=== PATIENT | male | born 1950 | race Caucasian/White ===

== ENCOUNTER 2016-06-01 10:47 | Emergency (ER) | payer MEDICARE ==
[2016-06-01 12:25] VITALS: BP 146/85
--- NOTE | 2016-06-01 13:14 | UC ---
Respiratory Complaint HPI - HPI Summary HPI Summary: Patient has had a harsh cough especially at night. it is not productive, denies any SOB. has had a "head cold" for a couple days. he states he had one episode of diarrhea and lots of gas two days ago, but it is all gone, denies any abdominal pain or fever. - History of Current Complaint Chief Complaint: UCRespiratory Stated Complaint: RESPIRATORY COMPLAINT Time Seen by Provider: 06/01/16 12:58 Hx Obtained From: Patient Onset/Duration: Sudden Onset, Lasting Days Timing: Constant Severity Initially: Mild Severity Currently: Moderate Pain Intensity: 4 Pain Scale Used: 0-10 Numeric Character: Cough: Nonproductive Aggravating Factors: Deep Breaths, Recumbent Position Alleviating Factors: Nothing Associated Signs And Symptoms: Positive: Wheezing, Nasal Congestion, Sinus Discomfort - Risk Factors Pulmonary Embolism Risk Factors: Negative Cardiac Risk Factors: Negative Pseudomonas Risk Factors: Negative Tuberculosis Risk Factors: Negative - Allergies/Home Medications Allergies/Adverse Reactions: Allergies Allergy/AdvReac Type Severity Reaction Status Date / Time No Known Allergies Allergy Verified 06/01/16 12:25 Home Medications: Home Medications guaiFENesin ER TAB [Mucinex*] 600 mg PO DAILY PRN 06/01/16 [History Confirmed ] PMH/Surg Hx/FS Hx/Imm Hx Previously Healthy: Yes - Surgical History Surgical History: Yes Surgery Procedure, Year, and Place: hydrocele at age 13 yrs - Family History Known Family History: Positive: Cardiac Disease, Hypertension - Social History Alcohol Use: None Substance Use Type: None Smoking Status (MU): Former Smoker Review of Systems Constitutional: Negative Skin: Negative Eyes: Negative ENT: Sore Throat, Nasal Discharge Respiratory: Cough Cardiovascular: Negative Gastrointestinal: Negative Genitourinary: Negative Motor: Negative Neurovascular: Negative Musculoskeletal: Negative Neurological: Negative Psychological: Negative All Other Systems Reviewed And Are Negative: Yes Physical Exam Triage Information Reviewed: Yes Appearance: Well-Nourished, Ill-Appearing, Pain Distress Vital Signs: Initial Vital Signs Temp 97.2 F 06/01/16 12:16 Pulse 59 06/01/16 12:16 Resp 14 06/01/16 12:16 BP 146/85 06/01/16 12:16 Pulse Ox 98 06/01/16 12:16 Vital Signs Reviewed: Yes Eye Exam: Normal Eyes: Positive: Conjunctiva Clear ENT Exam: Normal ENT: Positive: Normal ENT inspection, Pharyngeal erythema, TM bulging, Muffled/ hoarse voice Dental Exam: Normal Neck exam: Normal Neck: Positive: Supple, Nontender, No Lymphadenopathy Respiratory Exam: Normal Respiratory: Positive: Chest non-tender, No respiratory distress, No accessory muscle use, Wheezing, Inspiration Cardiovascular Exam: Normal Cardiovascular: Positive: RRR, No Murmur, Pulses Normal Abdominal Exam: Normal Abdomen Description: Positive: Nontender, No Organomegaly, Soft, Other: - no masses or guarding, no palpable tenderness Bowel Sounds: Positive: Present Musculoskeletal Exam: Normal Musculoskeletal: Positive: Strength Intact, ROM Intact, No Edema Neurological Exam: Normal Neurological: Positive: Alert, Muscle Tone Normal Psychological Exam: Normal Skin: Positive: Other - pale UC Diagnostic Evaluation - Laboratory O2 Sat by Pulse Oximetry: 98 Respiratory Course/Dx - Course Course Of Treatment: hx obtained,exam performed, medication reviewed, meds prescribed. encouraged follow up for any worsening symptoms. - Differential Dx/Diagnosis Differential Diagnosis/HQI/PQRI: Asthma, Bronchitis, Exacerbation Of COPD, Laryngitis, Sinusitis Provider Diagnoses: URI. bronchospasm Discharge - Discharge Plan Condition: Stable Disposition: HOME Prescriptions: Albuterol HFA INHALER* [Ventolin HFA Inhaler*] 1 - 2 puff INH Q4H PRN #1 mdi PRN Reason: Cough predniSONE TAB* [Deltasone TAB*] 40 mg PO DAILY #10 tab Patient Education Materials: Upper Respiratory Infection (ED), How to Use a Metered-Dose Inhaler and a Spacer (ED) Additional Instructions: take the medications as prescribed. Follow up with any worsening symptoms. I have included directions to use the spacer and inhaler.
== END 2016-06-01 13:18 | disposition home or self-care (01) ==
LOC: UCCORT 10:47
DX: J06.9 Acute upper respiratory infection, unspecified (principal); J98.01 Acute bronchospasm; Z87.891 Personal history of nicotine dependence
CPT/HCPCS: 99212; G0463

== ENCOUNTER 2016-07-21 10:32 | Emergency (ER) | payer MEDICARE ==
[2016-07-21 10:55] VITALS: BP 135/70
--- NOTE | 2016-07-21 11:21 | UC ---
Throat Pain/Nasal Lb HPI - HPI Summary HPI Summary: sore throat x 3 days + fever, cough, no nasal congestion grand son with Strep throat - History of Current Complaint Chief Complaint: UCRespiratory Stated Complaint: COUGH,SORE THROAT,FEVER Time Seen by Provider: 07/21/16 10:54 Hx Obtained From: Patient Onset/Duration: Gradual Onset, Lasting Days - 3, Still Present Severity: Moderate Cough: None Associated Signs & Symptoms: Positive: Fever. Negative: Sinus Discomfort, Nasal Discharge - Allergies/Home Medications Allergies/Adverse Reactions: Allergies Allergy/AdvReac Type Severity Reaction Status Date / Time No Known Allergies Allergy Verified 07/21/16 10:42 PMH/Surg Hx/FS Hx/Imm Hx Previously Healthy: Yes - Surgical History Surgical History: Yes Surgery Procedure, Year, and Place: hydrocele at age 13 yrs - Family History Known Family History: Positive: Cardiac Disease, Hypertension - Social History Alcohol Use: None Substance Use Type: None Smoking Status (MU): Former Smoker Type: Cigarettes Length of Time of Smoking/Using Tobacco: 20 yrs Review of Systems Constitutional: Fever Skin: Negative Eyes: Negative ENT: Sore Throat Respiratory: Cough Cardiovascular: Negative Gastrointestinal: Negative Genitourinary: Negative All Other Systems Reviewed And Are Negative: Yes Physical Exam Triage Information Reviewed: Yes Appearance: Well-Appearing, No Pain Distress, Well-Nourished Vital Signs: Initial Vital Signs Temp 98.2 F 07/21/16 10:36 Pulse 65 07/21/16 10:36 Resp 16 07/21/16 10:36 BP 135/70 07/21/16 10:36 Pulse Ox 97 07/21/16 10:36 Vital Signs Reviewed: Yes Eye Exam: Normal Eyes: Positive: Conjunctiva Clear ENT: Positive: Normal ENT inspection, Pharyngeal erythema, Nasal congestion, TMs normal Neck exam: Normal Neck: Positive: Supple, Nontender, No Lymphadenopathy Respiratory: Positive: Chest non-tender, Lungs clear, Normal breath sounds Cardiovascular: Positive: RRR, No Murmur, Pulses Normal Skin Exam: Normal Throat Pain/Nasal Course/Dx - Differential Dx/Diagnosis Provider Diagnoses: URI Discharge - Discharge Plan Condition: Stable Disposition: HOME Prescriptions: Amoxicillin (*) [Amoxicillin 875 MG (*)] 875 mg PO BID #20 tab Patient Education Materials: Pharyngitis (ED) Referrals: Felisa Ziegler NP [Primary Care Provider] - If Needed
== END 2016-07-21 11:32 | disposition home or self-care (01) ==
LOC: UCCORT 10:32
DX: J06.9 Acute upper respiratory infection, unspecified (principal); Z87.891 Personal history of nicotine dependence
CPT/HCPCS: 87651; 99212; G0463

== ENCOUNTER 2016-11-22 11:00 | Emergency (ER) | payer MEDICARE ==
[2016-11-22 11:36] VITALS: BP 144/75
--- NOTE | 2016-11-22 12:11 | UC ---
Respiratory Complaint HPI - HPI Summary HPI Summary: pt presents with c/o nasal congestion, cough, and left ear "ringing" X 4-6 weeks. Pt denies fever or chills. - History of Current Complaint Chief Complaint: UCGeneralIllness Stated Complaint: HEADACHE,COUGH,SORE THROAT Time Seen by Provider: 11/22/16 11:51 Hx Obtained From: Patient Onset/Duration: Gradual Onset, Lasting Weeks - 4-6 Timing: Constant Severity Initially: Mild Severity Currently: Mild Character: Cough: Productive - white Aggravating Factors: Deep Breaths, Recumbent Position Associated Signs And Symptoms: Positive: Nasal Congestion - Risk Factors Pulmonary Embolism Risk Factors: Negative Cardiac Risk Factors: Negative Pseudomonas Risk Factors: Negative Tuberculosis Risk Factors: Negative - Allergies/Home Medications Allergies/Adverse Reactions: Allergies Allergy/AdvReac Type Severity Reaction Status Date / Time No Known Allergies Allergy Verified 11/22/16 11:29 PMH/Surg Hx/FS Hx/Imm Hx Previously Healthy: Yes - Surgical History Surgical History: Yes Surgery Procedure, Year, and Place: hydrocele at age 13 yrs - Family History Known Family History: Positive: Cardiac Disease, Hypertension - Social History Alcohol Use: None Substance Use Type: None Smoking Status (MU): Former Smoker Type: Cigarettes Length of Time of Smoking/Using Tobacco: 20 yrs Review of Systems Constitutional: Negative Skin: Negative Eyes: Negative ENT: Other - nasal congestion, ear fullness, "ringing" Respiratory: Cough Cardiovascular: Negative Gastrointestinal: Negative Genitourinary: Negative Motor: Negative Neurovascular: Negative Musculoskeletal: Negative Neurological: Negative Psychological: Negative All Other Systems Reviewed And Are Negative: Yes Physical Exam Triage Information Reviewed: Yes Appearance: Well-Appearing Vital Signs: Initial Vital Signs Temp 97.4 F 11/22/16 11:30 Pulse 62 11/22/16 11:30 Resp 16 11/22/16 11:30 BP 144/75 11/22/16 11:30 Pulse Ox 97 11/22/16 11:30 Eye Exam: Normal ENT Exam: Other ENT: Positive: Nasal congestion, TM bulging - bialteral Neck exam: Normal Respiratory Exam: Normal Respiratory: Positive: Wheezing - fine wheezes in right middle lobe Cardiovascular Exam: Normal Musculoskeletal Exam: Normal Neurological Exam: Normal Psychological Exam: Normal Skin Exam: Normal UC Diagnostic Evaluation - Laboratory O2 Sat by Pulse Oximetry: 97 Respiratory Course/Dx - Differential Dx/Diagnosis Differential Diagnosis/HQI/PQRI: Bronchitis, Other - allergic rhinitis cough Provider Diagnoses: allergic rhinits. tinnitus. cough Discharge - Discharge Plan Condition: Stable Disposition: HOME Prescriptions: Benzonatate CAP* [Tessalon 100 MG CAP*] 100 mg PO TID PRN #30 cap PRN Reason: Cough Cetirizine-Pseudoephedrine [Zyrtec-D Allergy/Congesti] 1 tab PO DAILY #10 tab predniSONE TAB* [Deltasone TAB*] 20 mg PO DAILY #5 tab Patient Education Materials: Allergies (ED), Acute Cough (ED) Referrals: Felisa Ziegler NP [Primary Care Provider] - Additional Instructions: Please follow up with your PCP as needed or return to clinic.
== END 2016-11-22 12:23 | disposition home or self-care (01) ==
LOC: UCCORT 11:00
DX: J30.9 Allergic rhinitis, unspecified (principal); H93.19 Tinnitus, unspecified ear; R05 Cough; Z87.891 Personal history of nicotine dependence
CPT/HCPCS: 99212; G0463

== ENCOUNTER 2017-07-31 09:29 | Emergency (ER) | payer MEDICARE ==
[2017-07-31 10:03] VITALS: BP 120/61
--- NOTE | 2017-07-31 10:23 | UC ---
FLU HPI - HPI Summary HPI Summary: Pt c/o sudden onset of cough, fever, chills, wheezing and generalized malaise X 3 days. - History of Current Complaint Stated Complaint: FLU SYMPTOMS Time Seen by Provider: 07/31/17 09:42 Hx Obtained From: Patient Onset/Duration: Sudden Onset, Lasting Days, Still Present Severity Currently: Mild Severity Initially: Moderate Pain Intensity: 0 Associated Signs & Symptoms: Positive: Fever, Myalgia, Cough Related Hx: Possible Flu/Infectious Exposure - Allergy/Home Medications Allergies/Adverse Reactions: Allergies Allergy/AdvReac Type Severity Reaction Status Date / Time No Known Allergies Allergy Verified 07/31/17 09:59 PMH/Surg Hx/FS Hx/Imm Hx Previously Healthy: Yes - Surgical History Surgical History: Yes Surgery Procedure, Year, and Place: hydrocele at age 13 yrs - Family History Known Family History: Positive: Cardiac Disease, Hypertension - Social History Occupation: Retired Lives: With Family Alcohol Use: None Substance Use Type: None Smoking Status (MU): Former Smoker Type: Cigarettes Length of Time of Smoking/Using Tobacco: 20 yrs Have You Smoked in the Last Year: No Review of Systems Constitutional: Fever, Chills, Fatigue Skin: Negative Eyes: Negative ENT: Sinus Congestion Respiratory: Shortness Of Breath - with exertion, Cough Cardiovascular: Negative Gastrointestinal: Negative Genitourinary: Negative Motor: Negative Neurovascular: Negative Musculoskeletal: Myalgia Neurological: Negative Psychological: Negative Is Patient Immunocompromised?: No All Other Systems Reviewed And Are Negative: Yes Physical Exam Triage Information Reviewed: Yes Appearance: Ill-Appearing Vital Signs: Initial Vital Signs Temp 98.6 F 07/31/17 09:56 Pulse 68 07/31/17 09:56 Resp 20 07/31/17 09:56 BP 120/61 07/31/17 09:56 Pulse Ox 95 07/31/17 09:56 Vital Signs Reviewed: Yes Eye Exam: Normal ENT: Positive: Nasal congestion Dental Exam: Normal Neck exam: Normal Respiratory Exam: Normal Respiratory: Positive: No respiratory distress Cardiovascular Exam: Normal Musculoskeletal Exam: Normal Neurological Exam: Normal Psychological Exam: Normal Skin Exam: Normal Flu Course/Dx - Differential Dx/Diagnosis Differential Diagnosis/HQI/PQRI: Influenza, Upper Respiratory Infection Provider Diagnoses: Influenza Discharge - Sign-Out/Discharge Documenting (check all that apply): Discharge - Discharge Plan Condition: Stable Disposition: HOME Prescriptions: Albuterol HFA INHALER* [Ventolin HFA Inhaler*] 1 - 2 puff INH Q6H PRN #1 mdi PRN Reason: Sob/Wheezing Benzonatate CAP* [Tessalon 100 MG CAP*] 100 mg PO TID PRN #30 cap PRN Reason: Cough methylPREDNISolone TAB* [Medrol TAB*] 4 - 8 mg PO .SEE LISETTE #1 lisette Patient Education Materials: Influenza (ED) Referrals: Felisa Ziegler NP [Primary Care Provider] - - Billing Disposition and Condition Condition: STABLE Disposition: HOME
== END 2017-07-31 10:38 | disposition home or self-care (01) ==
LOC: UCCORT 09:29
DX: J10.1 Influenza due to other identified influenza virus with other respiratory manifestations (principal); Z87.891 Personal history of nicotine dependence
CPT/HCPCS: 87502; 99212; G0463

== ENCOUNTER → 2018-02-14 11:17 | Day surgery (SDC) | payer MEDICARE ==
[~2018-02-14 11:17] MED LIST: Buffered Lidocaine 0.9% SYRIN* 5 ML/SYR SYRINGE INTRADERM ONE; Buffered Lidocaine 0.9% SYRIN* 5 ML/SYR SYRINGE ONE; Bupivacaine 0.25% EPI 200,000* 30 ML SDV ONE; Glycopyrrolate IV* 0.2 MG/ML 1 ML VIAL ONE; Ketorolac INJ* 30 MG/ML 1 ML VIAL ONE; Lidocaine 2% PF * 5 ML VIAL ONE; Naloxone* 0.4 MG/ML 1 ML VIAL IV PRN; Neostigmine Methylsulfate* 1 MG/ML 10 ML VIAL (1 mg/ml) ONE; Ondansetron INJ* 2 MG/ML VIAL IV PRN; Propofol* 10 MG/ML 20 ML BTL IV PUSH ONE; Rocuronium* 10 MG/ML VIAL ONE; Sodium Citrate/Citric Acid* 15 ML UDC ONE; Sodium Citrate/Citric Acid* 15 ML UDC PO ONE; ceFAZolin 2 GM in NS PREMIX(*) 2 GM/100 ML BAG IVPB ONE; fentaNYL* 50 MCG/ML 2 ML VIAL (100 MCG VIAL) IV PRN; fentaNYL* 50 MCG/ML 2 ML VIAL (100 MCG VIAL) ONE
[2018-02-14 15:08] VITALS: BP 127/65
--- NOTE | 2018-02-14 22:39 | OP ---
CC: Richard Barber RPA-C * DATE OF OPERATION: 02/14/18 - [facility] [place] DATE OF : 46 SURGEON: Lloyd Blandon MD GROUND WORKER: Veena Grayson NP ANESTHESIOLOGIST: Dr. Morin. ANESTHESIA: General with local. PRE-OP DIAGNOSES: 1. Right upper quadrant abdominal pain. 2. Biliary dyskinesia. POST-OP DIAGNOSES: 1. Right upper quadrant abdominal pain. 2. Biliary dyskinesia. OPERATIVE PROCEDURE: Laparoscopic cholecystectomy. WOUND CLASSIFICATION: II. IV FLUIDS: 1 L of crystalloid. ESTIMATED BLOOD LOSS: Minimal. SPECIMEN: Gallbladder. DRAINS: None. DESCRIPTION OF PROCEDURE: Written informed consent was obtained, the abdomen was marked with indelible ink and preoperative antibiotics were administered. The patient was taken to the operating room, placed in the supine position. Sequential compression device and warming blanket were applied. General anesthesia was administered and the abdomen was prepped and draped in the usual sterile fashion. Time-out verification was completed. Initially, a small transverse incision was made just above the umbilicus at the midline. The peritoneal cavity was entered under direct vision. The 12-mm blunt port was then inserted and the abdomen was insufflated to 15 mmHg. Under direct vision, an 11-mm epigastric port was placed and two 5-mm ports were placed in the right side of the abdominal wall. It was evident that there were some omental adhesions mainly to the liver along the lateral aspect of the liver, i.e., just lateral to the gallbladder which prohibited adequate visualization of the gallbladder and grasping this. These adhesions were taken down using the hook electrocautery so that the gallbladder was exposed. The gallbladder at its top portion appeared to be bluish in color without evidence of acute or chronic inflammation and once we grasped this and elevated it to visualize more the infundibular area, it was apparent that there was a large fatty layer covering the gallbladder and our dissection commenced by opening the peritoneum along the medial and lateral aspects of the infundibular part of the gallbladder and sweeping the fat down to expose the gallbladder. Once this was complete, I was able to identify the cystic duct as it entered the gallbladder and we were able to dissect this and skeletonize this to assure myself of this structure. I did not identify one major cystic artery but with careful dissection, I cauterized through some of the fatty tissue more medial coming onto the upper portion of the gallbladder and there was no significant bleeding. I also proceeded to take a significant part of the inferior part of the gallbladder off the liver bed using a critical view technique to assure myself that this was indeed the cystic duct. The cystic duct appeared to be of normal caliber. It was triply clipped and divided. The gallbladder was then removed from the liver bed using cautery. This had showed somewhat of more chronic-appearing inflammation along the liver bed. The gallbladder was then removed and placed in an EndoCatch bag and brought out through the umbilical incision. The liver bed was then irrigated. Hemostasis was assured. All ports removed under direct vision of the camera. The umbilical fascia was closed with interrupted 0 Vicryl suture. The skin at all 4 incisions were approximated with subcuticular 4-0 Vicryl. Steri-Strips were applied. The patient tolerated the procedure well and was taken to the recovery room in stable condition. [id number]/[facility] #: [id number] MTDD
== END | disposition home or self-care (01) ==
LOC: OR 11:17
PROVIDERS: ATTEND Surgery
DX: K81.1 Chronic cholecystitis (principal); Z87.891 Personal history of nicotine dependence
CPT/HCPCS: 88304; A9270-GY; J0690; J1885; J2704; J2710; J3010